=== PATIENT | male | born 1950 | race Caucasian/White ===

== ENCOUNTER 2018-12-18 12:18 | Emergency (ER) | payer MEDICARE ==
[2018-12-18 13:11] LABS: #Basophils 0.1 thou/uL (0.0-0.2); #Eosinphils 0.2 thou/uL (0.0-0.7); #Lymphocytes 2.9 thou/uL (1.20-3.40); #Monocytes 0.9 thou/uL (0.11-0.59); #Neutrophils 7.4 thou/uL (1.40-6.50); %Basophils 0.8 % (0.0-1.0); %Eosinophils 1.6 % (0.0-10.0); %Lymphocytes 25.7 % (21.0-51.0); %Monocytes 7.5 % (0.0-10.0); %Neutrophils 64.4 % (42.0-75.0); Hemoglobin 17.7 g/dL (14.0-18.0); Mean Corpuscular HGB CONC 33.2 g/dL (32.0-36.0); Mean Corpuscular Hemoglobin 33.3 pg (27.0-31.0); Mean Platelet Volume 7.7 fL (7.4-10.4); Platelet Count 272 thou/uL (130-400); RBC Distribution Width 11.6 % (11.5-14.5); Red Blood Cell (RBC) Count 5.31 mill/uL (4.70-6.10); White Blood Cell (WBC) Count 11.5 thou/uL (4.8-10.8)
--- NOTE | 2018-12-18 13:38 | RAD ---
PORTABLE FRONTAL CHEST RADIOGRAPH: Date: 12-18-18 Comparison: None. History: Chest pain. FINDINGS: The lungs are hyperinflated. There is increased linear interstitial density noted throughout both jevon gs. There is no pneumothorax, pleural fluid, lobar consolidation or alveolar edema. There is atherosc lerotic calcification of the aortic arch. Asymmetric irregular linear density noted in the right uppe r lobe. Underlying nodule, inflammatory change, and/or scar are all possibilities. Evaluation is limi nikos without comparison imaging and thus, follow up CT may be beneficial. IMPRESSION: Diffuse increased linear interstitial density with pulmonary hyperinflation suggesting COPD in the pr oper clinical setting. Mild asymmetric increased linear density in the right upper lobe, which may re present scar. No comparison imaging is available. Follow up PA/lateral imaging of the chest and/or CT may be beneficial on a nonemergent basis. Code T POS: RENATO
[2018-12-18 13:40] LABS: ALT (SGPT) 13 U/L (8-55); AST (SGOT) 16 U/L (5-34); Albumin 4.2 g/dL (3.4-4.8); Alkaline Phosphatase 150 U/L (40-150); Anion Gap 16 mmol/L (10-20); BUN (Urea Nitrogen) 14 mg/dL (8.4-25.7); Bilirubin, Total 0.7 mg/dL (0.2-1.2); CK (CPK) 50 U/L (30-200); Calc. Creatinine Clearance 0 mL/min (70-130); Calcium 10.5 mg/dL (7.8-10.44); Carbon Dioxide 21 mmol/L (23-31); Chloride 105 mmol/L (98-107); Estimated GFR-MDRD 77; Globulin 3.6 g/dL (2.4-3.5); Glucose 136 mg/dL (80-115); Lipase 16 U/L (8-78); Potassium 4.3 mmol/L (3.5-5.1); Protein, Total 7.8 g/dL (5.8-8.1); Sodium 138 mmol/L (136-145)
== END 2018-12-18 15:01 | disposition home or self-care (01) ==
LOC: ERS 12:18
DX: R07.89 Other chest pain (principal); I73.9 Peripheral vascular disease, unspecified; Z71.6 Tobacco abuse counseling; I48.91 Unspecified atrial fibrillation; I25.2 Old myocardial infarction; F17.210 Nicotine dependence, cigarettes, uncomplicated; Z79.899 Other long term (current) drug therapy; Z79.82 Long term (current) use of aspirin
CPT/HCPCS: 36415; 71045; 80053; 82550; 83690; 84484; 85025; 93005; 94760; 99406

== ENCOUNTER 2019-06-29 08:56 | Outpatient (CLI) | payer MEDICARE ==
--- NOTE | 2019-06-29 13:57 | CT ---
CTA ABDOMEN AND PELVIS AND BILATERAL EXTREMITIES: Multiple axial tomograms are obtained with multiplanar reconstruction and 3D post processing followin g angio protocol. INDICATION: Peripheral vascular disease. Bilateral leg pain. COMPARISON: No comparison studies. FINDINGS: The abdominal aorta shows moderate diffuse atherosclerotic change. Peripheral arterial calcification with soft plaque in the periphery of the aorta is noted. There is mild fusiform aneurysmal dilatati on with focal sacular dilatation of the distal abdominal aorta with diameter measured up to 3.0 cm. No definite stenosis at the origin of the celiac or superior mesenteric artery. Calcified plaque is seen in both proximal renal arteries. These changes result in mild stenosis in b oth proximal renal arteries. There appears to be hemodynamically stenosis in the proximal right namita l artery just beyond its origin with diameter of stenosis in the 50% diameter range. Soft plaque in the peripheral aorta at the level of the renal arteries produces lumen irregularity. The common iliac arteries show atherosclerotic calcification. There are bilateral iliac artery stent s. There is focal luminal stenosis in the left common iliac artery just proximal to the stent. The degree of stenosis appears to be hemodynamically significant, greater than 50%. LEFT LOWER EXTREMITY: The left internal and external iliacs are patent, although the diffuse atherosclerotic change is seen . The left common femoral shows diffuse atherosclerotic change with areas of mild stenosis. Profunda is patent. There is a stent at the origin of the left superficial femoral artery. However, this artery is occlu ded at its origin. There is a fem-pop graft on the left which also appears occluded. The popliteal appears to reconstitute via collaterals from profunda at the joint space. Popliteal bifurcates below the joint space. The anterior tibial appears to occlude distal calf. Pos terior tibial artery shows diffuse atherosclerotic disease with multiple areas of stenosis. This ves jefferson appears to be patent at the ankle. RIGHT LOWER EXTREMITY: Internal and external iliacs are patent with diffuse disease. Right common femoral shows diffuse disease with a focal area of what appears to be moderate stenosis, probably hemodynamically significant. Profunda is patent. The right superficial femoral is patent; however, diffuse atherosclerotic changes are seen throughout its course. Numerous areas of moderate stenosis throughout the thigh. The right popliteal is patent. The popliteal trifurcates below the knee space. Only the posterior tibial artery is seen at the ankl e. Anterior tibial and peroneal appear to occlude in the distal calf. SOFT TISSUES: There is confluent parenchymal opacity in the posterior right lung base. There are chronic lung wilkins ges with evidence of honeycombing in the posterior lung bases. This confluent density is concerning for acute infectious process and atelectasis superimposed on chronic change. Liver, spleen, and pancreas unremarkable. Adrenal glands and kidneys unremarkable. Bowel loops unre markable. IMPRESSION: 1. Diffuse atherosclerotic changes involving the abdominal aorta with fusiform aneurysmal dilatation . The distal abdominal aorta measures up to 3 cm. 2. Evidence of significant stenosis in the proximal right renal artery. 3. Diffuse disease in the lower extremities as described above. The left superficial femoral artery occludes at its origin and the left fem-pop graft is occluded. The popliteal reconstitutes at the l eft knee joint as described above. 4. Evidence of significant stenosis in the left common iliac artery just proximal to the stent. 5. Soft tissues show chronic lung parenchymal changes with opacity in the right posterior lung base concerning for superimposed inflammatory infiltrate as described above. POS: [facility]
[2019-06-29] MEDS ORDERED: Iopamidol 370 76% 100 ML VIAL ONE (16:27)
== END 2019-06-29 08:57 | disposition home or self-care (01) ==
LOC: CT 08:56
PROVIDERS: ATTEND Thoracic Surgery (Cardiothoracic Vascular Surgery)
DX: I73.9 Peripheral vascular disease, unspecified (principal); I70.0 Atherosclerosis of aorta; I71.4 Abdominal aortic aneurysm, without rupture; I70.1 Atherosclerosis of renal artery; I77.4 Celiac artery compression syndrome; R91.8 Other nonspecific abnormal finding of lung field
CPT/HCPCS: 75635; 82565; Q9967